=== PATIENT | male | born 1970 ===

== ENCOUNTER → 2018-11-15 | Outpatient (CLI) | payer MEDICAID ==
--- NOTE | 2018-11-15 12:18 | Diagnostic Imaging Report ---
Indication: Headache Technique: Contiguous 5 mm thick transaxial imaging of the head obtained in a Siem[employer] Sensation [address] scanner[address] Soft tissue and bone windows generated. Automatic Exposure Control was utilized. Total Dose length Product (DLP): 1417.[address] Dose Index Volume (CTDIvol): 70.38 mGy Comparison: none Findings: There are abnormal fairly extensive patchy areas of low attenuation involving the cerebral cortex bilaterally with extension into subcortical and periventricular white matter consistent with infarcts. These appear to be subacute to chronic in age. There is involvement of the right frontal, bilateral temporal and bilateral parietal lobes and the right occipital lobe. In general there is more involvement on the right. There is no infratentorial infarct identified. There is no evidence of acute hemorrhage. There is a background of generalized atrophy which is mild to moderate. There is no midline shift. The bones are unremarkable. 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 Findings suggestive of embolic phenomena. Clinical evaluation is recommended. The CT scanner at [facility] is accredited by the [employer] and the scans are performed using dose optimization techniques as appropriate to a performed exam including Automatic Exposure control.
== END | disposition home or self-care (01) ==
LOC: CAT 09:45
DX: R51 Headache (principal); Z87.820 Personal history of traumatic brain injury
CPT/HCPCS: 70450